=== PATIENT | female | born 1960 | race Caucasian/White ===

== ENCOUNTER 2018-04-20 11:02 | Inpatient (IN) | payer OTHER ==
[2018-04-20] MEDS ORDERED: HYDROmorphONE/DILAUDID 2 MG/ML INJ IVP ONE (11:58)
--- NOTE | 2018-04-20 12:09 | EDPHY ---
H & P Stated Complaint: Slipped on ice, injury to left hip. Time Seen by Provider: 04/20/18 11:38 HPI/ROS: Chief Complaint: Fall, hip pain HPI: 58-year-old woman with a history of osteoporosis had a mechanical slip and fall on the ice and other when this morning landing on her left hip. She had immediate onset of pain. She has been unable to ambulate since. Pain is about a 9/10. No prior injuries. No recent illness. Last had some the eat at 9:00 a.m. This morning. No nausea or vomiting. No chest pain or shortness of breath. She did not hit her head. No loss of conscious. No numbness or weakness. ROS: 10 systems were reviewed and were negative except those elements noted in the HPI. PMH: Osteoporosis Social History: No smoking, no alcohol, no recreational drug use Family History: non-contributory Physical Exam: Gen: Awake, Alert, No Distress HEENT: Nose: no rhinorrhea Eyes: PERRLA, EOMI Mouth: Moist mucosa Neck: Supple, no JVD Chest: nontender, lungs clear to auscultation Heart: S1, S2 normal, no murmur Abd: Soft, non-tender, no guarding Back: no CVA tenderness, no midline tenderness Ext: no edema, left hip is tender in deformed. Left leg is shortened and mildly rotated. 2+ dorsalis pedis pulses. Sensations intact in all dermatomes. Skin: no rash Neuro: CN II-XII intact, Sensation grossly intact, Strength 5/5 in bilateral upper and lower extremities - Personal History Current Tetanus Diphtheria and Acellular Pertussis (TDAP): Yes - Medical/Surgical History Hx Asthma: No Hx Chronic Respiratory Disease: No Hx Diabetes: No Hx Cardiac Disease: No Hx Renal Disease: No Hx Cirrhosis: No Hx Alcoholism: No Hx HIV/AIDS: No Hx Splenectomy or Spleen Trauma: No Other PMH: Osteoporosis. - Social History Smoking Status: Never smoked Constitutional: Initial Vital Signs Temperature (C) 36.6 C 04/20/18 11:04 Heart Rate 98 04/20/18 11:04 Respiratory Rate 16 04/20/18 11:04 Blood Pressure 117/81 H 04/20/18 11:04 O2 Sat (%) 98 04/20/18 11:04 O2 Delivery Mode Room Air Allergies/Adverse Reactions: Sulfa (Sulfonamide Antibiotics) Allergy (Verified 04/20/18 11:09) Home Medications: Medication Instructions Recorded Unobtainable 04/20/18 Medical Decision Making - Diagnostics Imaging Results: Imaging Impressions Hip X-Ray 04/20/18 11:10 Impression: Subcapital left hip fracture. ED Course/Re-evaluation: X-rays consistent with subcapital left hip fracture. Orthopedics has been paged. Case discussed with Dr. Siddiqui, orthopedics. He will plan on taking the patient to the operating room. - Data Points Medications Given: Discontinued Medications Hydromorphone HCl (Dilaudid) 0.5 mg IVP EDNOW ONE Stop: 04/20/18 11:59 Last Admin: 04/20/18 12:01 Dose: 0.5 mg Departure - Departure Disposition: [facility] Inpatient Acute Clinical Impression: Hip fracture Condition: Fair Referrals: CHRISTIANO TSAI [Other] - As per Instructions
[2018-04-20 12:32] LABS: PLATELET COUNT 239 10^3/uL (150-400)
--- NOTE | 2018-04-20 14:58 | PDANEPAE ---
ANE History of Present Illness L hip hemiarthroplasty ANE Past Medical History - Cardiovascular History Hx Hypertension: No Hx Arrhythmias: No Hx Chest Pain: No Hx Coronary Artery / Peripheral Vascular Disease: No Hx CHF / Valvular Disease: No Hx Palpitations: No - Pulmonary History Hx COPD: No Hx Asthma/Reactive Airway Disease: No Hx Recent Upper Respiratory Infection: No Hx Oxygen in Use at Home: No Hx Sleep Apnea: No Sleep Apnea Screening Result - Last Documented: Negative - Endocrine History Hx Diabetes: No Hypothyroid: No Hyperthyroid: No Obesity: no Endocrine History Comment: Osteoporosis - Renal History Hx Renal Disorders: No - Liver History Hx Hepatic Disorders: No - Neurological & Psychiatric Hx Hx Neurological and Psychiatric Disorders: No - Cancer History Hx Cancer: No Cancer History Comment: Precancerous lesion removed about 1 month ago from nose - GI History GERD: no - Chronic Pain History Chronic Pain: No - Surgical History Prior Surgeries: ORIF R elbow, D&C. SHARLENE for labor ANE Review of Systems Review of Systems: - Exercise capacity METS (RN): 4 METS ANE Patient History - Allergies Allergies/Adverse Reactions: Sulfa (Sulfonamide Antibiotics) Allergy (Severe, Verified 04/20/18 12:48) Rash - Home Medications Home Medications: Acetaminophen [Tylenol ES 500 mg (*)] 1,000 mg PO Q8 PRN 04/20/18 [Last Taken ] Alendronate Sodium [Fosamax 70 MG (*)] 70 mg PO TU@0700 04/20/18 [Last Taken 07/28] Cholecalciferol Vit D3 [Vitamin D3 (*)] 1,000 units PO DAILY 04/20/18 [Last Taken 04/19/18] - NPO status NPO Since - Liquids (Date): 04/20/18 NPO Since - Liquids (Time): 09:00 NPO Since - Solids (Date): 04/20/18 NPO Since - Solids (Time): 09:00 - Anes Hx Anes Hx: no prior problems - Smoking Hx Smoking Status: Never smoked Marijuana use: No - Alcohol Use Alcohol Use: Other (1 glass of wine/day) - Family Anes Hx Family Anes Hx: none ANE Labs/Vital Signs - Labs Result Diagrams: 04/20/18 12:00 04/20/18 12:00 - Vital Signs Blood Pressure: 116/66 Heart Rate: 78 Respiratory Rate: 16 O2 Sat (%): 96 Height: 165.1 cm Weight: 63.049 kg ANE Physical Exam - Airway Neck exam: FROM Mallampati Score: Class 1 Mouth exam: normal dental/mouth exam (Upper front cap) - Pulmonary Pulmonary: clear to auscultation - Cardiovascular Cardiovascular: regular rate and rhythym - ASA Status ASA Status: II, E ANE Anesthesia Plan Anesthesia Plan: general endotracheal anesthesia (SAB vs. GA discussed. Patient prefers GA.)
[2018-04-20] MEDS ORDERED: LR 1,000 ML IV SCH ×3 (15:00→20:30)
[2018-04-20] MEDS ORDERED: MIDAZOLAM 2 MG/2 ML VIAL IVP ONE (15:19)
[2018-04-20] MEDS ORDERED: PROPOFOL 200 MG/20 ML VIAL ONE (15:25)
[2018-04-20] MEDS ORDERED: fentaNYL 100 MCG/2 ML INJ ONE ×2 (15:25→18:26)
[2018-04-20] MEDS ORDERED: BUPIVACAINE/EPI 0.5% 30 ML SDV ONE (16:39)
[2018-04-20] MEDS ORDERED: BACITRACIN 50,000 UNITS/10 ML SYR IRR ONE (16:40)
[2018-04-20] MEDS ORDERED: POLYMYXIN B SULFATE 500,000 UNIT/10 ML SYR IRR ONE (16:40)
[2018-04-20] MEDS ORDERED: DEXAMETHASONE 4 MG/ML VIAL ONE (17:10)
[2018-04-20] MEDS ORDERED: ROCURONIUM 50 MG/5 ML VIAL ONE (17:10)
[2018-04-20] MEDS ORDERED: ONDANSETRON 4 MG/2 ML VIAL IVP ONE (17:48)
[2018-04-20] MEDS ORDERED: ONDANSETRON 4 MG/2 ML VIAL ONE ×2 (17:49→19:15)
[2018-04-20] MEDS ORDERED: CEFAZOLIN 2 GM/DEXTROSE/100 ML BAG IV ONE (18:02)
[2018-04-20] MEDS ORDERED: MIDAZOLAM 2 MG/2 ML VIAL ONE (18:04)
[2018-04-20] MEDS ORDERED: ROPIVACAINE 0.2% 80 MG, EPINEPHrine 0.2 MG, KETOROLAC TROMETHAMINE 30 MG, morphINE 10 M... IU ONE (18:28)
[2018-04-20] MEDS ORDERED: TRANEXAMIC ACID 3,000 MG in NS (SYRINGE) 50 ML IRR ONE (18:28)
[2018-04-20] MEDS ORDERED: ceFAZolin 2 GM/DEXTROSE 100 ML IV ONE ×2 (18:28→18:30)
[2018-04-20] MEDS ORDERED: PHENYLEPHRINE HCL 100 MCG/ML SYR ONE (18:31)
[2018-04-20] MEDS ORDERED: GLYCOPYRROLATE 0.2 MG/1 ML VIAL ONE (19:31)
[2018-04-20] MEDS ORDERED: NEOSTIGMINE METHYLSULFATE 5 MG/5 ML SYR ONE (19:31)
[2018-04-20] MEDS ORDERED: NALOXONE HCL 0.4 MG/ML INJ IVP PRN (19:49)
[2018-04-20] MEDS ORDERED: HYDROmorphONE/DILAUDID 2 MG/ML INJ IVP PRN (19:49)
[2018-04-20] MEDS ORDERED: fentaNYL 100 MCG/2 ML INJ IVP PRN (19:49)
[2018-04-20] MEDS ORDERED: ONDANSETRON 4 MG/2 ML VIAL IVP PRN (19:49)
[2018-04-20] MEDS ORDERED: PROMETHAZINE HCL 25 MG SUPPR PR PRN (20:04)
[2018-04-20] MEDS ORDERED: TAPENTADOL HCL 50 MG TAB PO PRN (20:04)
[2018-04-20] MEDS ORDERED: CYCLOBENZAPRINE 10 MG TAB PO PRN (20:04)
[2018-04-20] MEDS ORDERED: LACTULOSE 20 GM/30 ML UDCUP PO PRN (20:04)
[2018-04-20] MEDS ORDERED: PROMETHAZINE HCL 25 MG/ML INJ IVP PRN (20:04)
[2018-04-20] MEDS ORDERED: MAGNESIUM HYDROXIDE 30 ML UDCUP PO PRN (20:04)
[2018-04-20] MEDS ORDERED: DIPHENOXYLATE/ATROPINE LOMOTIL 1 TAB PO PRN (20:04)
[2018-04-20] MEDS ORDERED: METOCLOPRAMIDE 10 MG/2 ML VIAL IVP PRN (20:04)
[2018-04-20] MEDS ORDERED: POLYETHYLENE GLYCOL 3350 17 GM PKT PO PRN (20:04)
[2018-04-20] MEDS ORDERED: ONDANSETRON DISINTEGRATING 4 MG TAB PO PRN (20:04)
[2018-04-20] MEDS ORDERED: TEMAZEPAM 15 MG CAP PO PRN (20:04)
[2018-04-20] MEDS ORDERED: BISACODYL 10 MG SUPP PR PRN (20:04)
[2018-04-20] MEDS ORDERED: diphenhydrAMINE 25 MG CAP PO PRN (20:04)
--- NOTE | 2018-04-20 20:04 | POSTOPPROG ---
Post Op Note Date of Operation: 04/20/18 Surgeon: Nazanin Siddiqui Anesthesia: Epidural, GET(General Endotracheal) Pre-op Diagnosis: l hip fx Procedure: l hip charmaine-arthroplasty w/ fluoro Inf/Abcess present in the surg proc area at time of surgery?: No Depth: Deep Incisional (Fascial) EBL: 100-500
--- NOTE | 2018-04-20 20:05 | POSTANESTH ---
Post Anesthetic Evaluation Cardiovascular Status: Normal, Stable Respiratory Status: Normal, Stable Level of Consciousness/Mental Status: Can Participate in Eval Pain Control: Adequate, Prn Tx Ordered Nausea/Vomiting Control: Adequate, Prn Tx Ordered Complications Possibly Related to Anesthesia: None Noted
[2018-04-20] MEDS ORDERED: MEPERIDINE 25 MG/0.5 ML AMP IVP ONE (20:16)
[2018-04-20] MEDS ORDERED: MEPERIDINE 25 MG/0.5 ML AMP ONE (20:20)
--- NOTE | 2018-04-20 21:27 | GOP ---
[f rep st] OPERATIVE REPORT DATE OF OPERATION: 04/20/2018 SURGEON: Nazanin Siddiqui MD ANESTHESIA: Endotracheal intubation. PREOPERATIVE DIAGNOSIS: Left subcapital hip fracture. POSTOPERATIVE DIAGNOSIS: Left subcapital hip fracture. PROCEDURE PERFORMED: Left hip hemiarthroplasty. FINDINGS: INDICATIONS: This is a 58-year-old female who fell earlier today in a parking lot. She was going sn owshoeing and fell in the parking lot, had pain in the hip. Was seen in the emergency room, diagnose d with a subcapital fracture. She was brought to the operating room as soon as time was available. DESCRIPTION OF PROCEDURE: Patient brought to the operating room after the left side had been identif ied as the correct side by the patient and the physician. Once in the operating room, she was placed under general anesthesia using endotracheal intubation. Once asleep, she was placed on a traction t able with a well-padded peroneal post and both legs placed in appropriate leg lopez. Fluoroscopy wa s used to ensure proper positioning of the pelvis. Once in proper position, the ARCH table was sindi d into place, and the left hip and flank were sterilely prepped and draped in the usual fashion using GSI solution. Once prepped and draped, incision was made 2 cm lateral and inferior to the ASIS and heading in a 15-degree posterior direction, sharp dissection carried down through the skin and subcut aneous layers with bleeding controlled using electrocautery. Dissection was done down along the fasc ia overlying the TFL. The fascia overlying the TFL was cut in line with its fibers with the muscle b venkata retracted laterally. Blunt dissection was carried deep down to the bottom of the sheath where t he circumflex vessels were found. These were cauterized. Once cauterized, deeper dissection was car ried down to the hip capsule with blunt cobra retractors placed superior and inferior to the femoral neck. The anterior capsule was removed in order to gain access into the hip, and an oscillating saw was used to cut just above the intertrochanteric line, then the leg was externally rotated 40 degrees . Corkscrew was used to remove the head. Head was measured to be 47 mm in diameter. Trials were pl aced. In the acetabulum, noted a 48 mm shell seemed to fit best. Attention was then turned to the f emur, which was externally rotated 90 degrees. Electrocautery was used to dissect the capsule off th e anterior and superior portions of the femoral neck. Once achieving an adequate release, the leg wa s brought to extension and adduction gaining access into the proximal femur. A curette was used to r emove medullary bone from the proximal portion of the femur with a rongeur used to remove the superio r portion of the femoral neck. A canal finder was passed into the femur, and sequential broaches wer e used up to a size 6, which was noted to fit securely. Trial reduction was performed. Noted a size 6 seemed to fit the canal well and gave good length; therefore, the hip was re-dislocated, placed in extension and adduction, and a size 6 Accolade II 127 degree neck was put into place and noted to fi t securely. Trials again were performed, noted that a minus 3 head seemed to give good length, as we ll as stability; therefore, the hip was re-dislocated, placed in extension and adduction. The trunni on of the neck was washed and dried, and a 26 minus 3 femoral head was put into place, and then a 26 x 48 [place] Bipolar Component head was then put into place and noted to fit securely. Hip was rel ocated, noted to be very secure. Joint cocktail was injected into the posterior capsule, as well as periosteum of the femur and acetabulum. Tranexamic acid was irrigated through the wound. The wound was then closed in layers to include 0 Vicryl suture for the fascial layer and the deep subcutaneous layers, 2-0 Vicryl suture for the subcutaneous layers, and then a 3-0 V-Loc suture in running subcuti cular stitch for the skin. The wound was then dressed with Steri-Strips, Xeroform, 4 x 4, and Tegade rm. Patient was completely undraped in the operating room. Both legs were taken out of the traction lopez. The peroneal post was removed. Leg lengths were noted to be equal. She was woken up, extu bated, transferred onto a bed, and sent to recovery room in good condition. /[id number]/MODL
[2018-04-20] MEDS: FAMOTIDINE 20 MG TAB PO SCH (22:04)
[2018-04-20] MEDS: SENNOSIDES/DOCUSATE SODIUM TAB PO SCH (22:04)
[2018-04-20] MEDS: traMADol 50 MG TAB PO SCH (23:58)
[2018-04-20] MEDS: ACETAMINOPHEN 325 MG TAB PO SCH (23:58)
--- NOTE | 2018-04-20 23:58 | GCON ---
[f rep st] CONSULTATION INPATIENT CONSULTATION DATE OF CONSULTATION: 04/20/2018 COMPLAINTS: Left hip pain. HISTORY OF PRESENT ILLNESS: The patient is a 58-year-old female, who was going out for snowshoeing t janet when she slipped on the ice in the parking lot. She fell onto her left side, had pain and was b rought to the emergency room, diagnosed with a left subcapital hip fracture. I was asked to see the patient for further evaluation. PHYSICAL EXAMINATION: The patient is neurologically intact to the dorsal, lateral, and plantar porti ons of the foot with EHL, FHL, anterior tib and gastroc intact. IMAGING STUDIES: X-ray exam reveals subcapital impacted femur fracture. ASSESSMENT AND PLAN: Patient is status post left subcapital femur fracture. Plan is to take her to the operating room to undergo a left hip hemiarthroplasty. She will be brought to the operating room as soon as time is available. /[id number]/MODL
[2018-04-20] MEDS: KETOROLAC 15 MG/1 ML SDV IVP SCH (23:59)
[2018-04-21] MEDS: ceFAZolin 2 GM/DEXTROSE 100 ML IV SCH ×2 (02:02→09:43)
[2018-04-21] MEDS: traMADol 50 MG TAB PO SCH ×2 (05:21→12:21)
[2018-04-21] MEDS: ACETAMINOPHEN 325 MG TAB PO SCH ×2 (05:21→12:28)
[2018-04-21] MEDS: KETOROLAC 15 MG/1 ML SDV IVP SCH ×2 (05:22→12:22)
--- NOTE | 2018-04-21 07:47 | PDMN ---
Medical Necessity Medical necessity: MCG: S600 hip hemiarthroplasty 3 days: OP: L hip hemiarthroplasty-- pt slipped and fell on ice found to have L subcapital hip fx.
[2018-04-21] MEDS ORDERED: RIVAROXABAN 10 MG TAB PO SCH (09:00)
[2018-04-21] MEDS: oxyCODONE IR 5 MG TAB PO PRN ×2 (09:43→16:20)
[2018-04-21] MEDS: SENNOSIDES/DOCUSATE SODIUM TAB PO SCH (09:43)
[2018-04-21] MEDS: FAMOTIDINE 20 MG TAB PO SCH (09:44)
--- NOTE | 2018-04-21 13:58 | CPEKG ---
Test Reason : OPEN Blood Pressure : / mmHG Vent. Rate : 087 BPM Atrial Rate : 086 BPM P-R Int : 150 ms QRS Dur : 101 ms QT Int : 376 ms P-R-T Axes : 079 -47 075 degrees QTc Int : 453 ms Sinus rhythm Left anterior fascicular block Left ventricular hypertrophy Anterior Q waves, possibly due to LVH Confirmed by Familia Garber ([id number]) on 04/21/2018 1:57:59 PM Referred By: Familia Garber Confirmed By:Familia Garber
--- NOTE | 2018-04-21 15:42 | SOAPPROG ---
SOAP Progress Note Assessment/Plan: Assessment: Plan: Subjective: states she's ready for home dressing with min sang drainage foot NVI dc to home fu in office or closer to home Objective: Vital Signs Temp Pulse Resp BP Pulse Ox 36.4 C 69 16 106/70 94 04/21/18 12:00 04/21/18 12:00 04/21/18 12:00 04/21/18 12:00 04/21/18 12:00 Laboratory Results 04/21/18 04:47 04/20/18 04/21/18 04/22/18 05:59 05:59 05:59 Intake Total 1580 Output Total 1100 Balance 480 ICD10 Worksheet Patient Problems: Problems Problem Status Onset Hip fracture Acute
[2018-04-21 15:57] VITALS: BP 125/70
--- NOTE | 2018-04-21 16:24 | ASMTCMCOM ---
CM Note CM Note Notes: Patient chart reviewed. 58 year old female s/p slip and fall with resultant hip fracture. She is cleared to dc to home with family support and outpatient rehab. No needs identiifed. Plan: Dc to home. Date Signed: 04/21/2018 04:24 PM Electronically Signed By:Melody Raya RN
== END 2018-04-21 17:05 | disposition home or self-care (01) | DRG 470 ==
LOC: F3N 13:10
PROVIDERS: ADMIT Orthopaedic Surgery; ATTEND Orthopaedic Surgery
PROC: 0SRS0JZ Replacement of Left Hip Joint, Femoral Surface with Synthetic Substitute, Open Approach (ICD-10-PCS; principal; 2018-04-20 17:30)
DX: S72.012A Unspecified intracapsular fracture of left femur, initial encounter for closed fracture (principal); W00.0XXA Fall on same level due to ice and snow, initial encounter; Y92.481 Parking lot as the place of occurrence of the external cause; M81.0 Age-related osteoporosis without current pathological fracture
CPT/HCPCS: 96374; 97116-GP; 97161-GP; 97165-GO; 97535-GO; J0171; J0690; J1100; J1170; J1885; J2175; J2250; J2270; J2370; J2405; J2704; J2710; J2795; J3010